=== PATIENT | female | born 1970 | race Caucasian/White ===

== ENCOUNTER 2016-11-23 10:26 | Emergency (ER) | payer SELFPAY ==
[~2016-11-23] VITALS: Ht 157.5 cm; Wt 41.8 kg
[2016-11-23 10:34] VITALS: BP 106/68; PULSE 98; TEMP 98.8
== END 2016-11-23 11:58 | disposition home or self-care (01) ==
LOC: COL.ER 10:26
DX: J06.9 Acute upper respiratory infection, unspecified (principal); F17.210 Nicotine dependence, cigarettes, uncomplicated

== ENCOUNTER 2017-02-25 10:43 | Emergency (ER) | payer SELFPAY ==
[~2017-02-25] VITALS: Ht 160 cm; Wt 40.5 kg
[2017-02-25 10:47] VITALS: BP 119/75; TEMP 97.6
[2017-02-25 12:14] VITALS: PULSE 88
== END 2017-02-25 12:15 | disposition home or self-care (01) ==
LOC: COL.ER 10:43
DX: J06.9 Acute upper respiratory infection, unspecified (principal); J32.9 Chronic sinusitis, unspecified; F17.210 Nicotine dependence, cigarettes, uncomplicated

== ENCOUNTER 2017-03-13 04:09 | Emergency (ER) | payer SELFPAY ==
[~2017-03-13] VITALS: Ht 170.2 cm; Wt 38.2 kg
[2017-03-13 04:23] VITALS: TEMP 97.9
[2017-03-13 05:10] VITALS: BP 122/74; PULSE 92
== END 2017-03-13 05:10 | disposition home or self-care (01) ==
LOC: COL.ER 04:09
DX: S90.01XA Contusion of right ankle, initial encounter (principal); F17.210 Nicotine dependence, cigarettes, uncomplicated; W22.8XXA Striking against or struck by other objects, initial encounter; Y93.72 Activity, wrestling; Y92.009 Unspecified place in unspecified non-institutional (private) residence as the place of occurrence of the external cause

== ENCOUNTER → 2018-08-18 | Outpatient (CLI) | payer OTHER ==
[~2018-08-18] MED LIST: NO HOME MEDICATIONS
== END ==
LOC: COL.RAD 13:56
DX: M19.072 Primary osteoarthritis, left ankle and foot (principal); M79.671 Pain in right foot; Z87.312 Personal history of (healed) stress fracture

== ENCOUNTER → 2021-05-08 | Outpatient (CLI) | payer SELFPAY | LOC: COL.RAD 14:23 | DX: R05.9 Cough, unspecified (principal); F17.200 Nicotine dependence, unspecified, uncomplicated ==

== ENCOUNTER 2023-07-30 17:58 | Observation (INO) | payer SELFPAY ==
[~2023-07-30] VITALS: Ht 160 cm; Wt 34.3 kg
[2023-07-30] MEDS ORDERED: NS 1,000 ML IV ONE ×2 (19:00→22:15)
[2023-07-30] MEDS ORDERED: Albuterol/Ipratropium 3 MG-0.5 MG/3 ML Neb Soln IH ONE ×2 (19:30→22:30)
[2023-07-30 19:34] LABS: BASO # 0.1 K/mm3 (0.0-0.2); BASO % 0.5 % (0.0-2.0); EOS # 0.1 K/mm3 (0.0-0.7); EOS % 0.9 % (0.0-4.0); GRAN # 6.2 K/mm3 (1.4-6.5); GRAN % 67.7 % (42.2-75.2); HEMATOCRIT 41.8 % (37.0-47.0); HEMOGLOBIN 14.7 g/dl (12.5-16.0); LYMPH # 2.1 K/mm3 (1.2-3.4); LYMPH % 23.4 % (20.0-51.0); MEAN CELL VOLUME 87 fl (80.0-100.0); MEAN CORPUSCULAR HEMOGLOBIN 31 pg (27-31); MEAN CORPUSCULAR HGB CONC 35 g/dl (33.0-37.0); MONO # 0.7 K/mm3 (0.1-0.6); MONO % 7.1 % (1.7-9.3); PLATELET COUNT 258 K/mm3 (130-400); RED BLOOD COUNT 4.81 M/mm3 (4.10-5.30); REDCELL DISTRIBUTION WIDTH-CV 13.2 % (11.5-14.5)
[2023-07-30 19:55] LABS: ALBUMIN 4.2 gm/dL (3.5-5.0); BILIRUBIN,TOTAL 0.4 mg/dL (0.2-1.2); CALCIUM 9.6 mg/dL (8.4-10.2); CREATININE, serum 0.74 mg/dL (0.57-1.11); POTASSIUM 3.6 mmol/L (3.5-4.5); TOTAL PROTEIN 7.6 gm/dL (6.2-8.1)
[2023-07-30] MEDS ORDERED: PREDNISONE20 MG PO (20:12)
[2023-07-30] MEDS ORDERED: ZITHROMAX Z PA250 MG PO (20:13)
[2023-07-30] MEDS ORDERED: predniSONE 20 MG TAB PO ONE (20:15)
[2023-07-30 23:56] LABS: COLLECTION METHOD CLEAN CATCH
[2023-07-31 00:17] LABS: SQUAMOUS EPITHELIAL 0-2 /hpf (0-10); URINE APPEARANCE Clear (CLEAR/HAZY); URINE BLOOD Negative (NEGATIVE); URINE COLOR Yellow (YELLOW); URINE GLUCOSE Negative (NEGATIVE); URINE KETONE Negative (NEGATIVE); URINE NITRATE Negative (NEGATIVE); URINE PROTEIN(semi-quant) Negative (NEGATIVE); URINE RBC None Seen /hpf (0-2); URINE UROBILINOGEN 0.2 E.U/dL (0.2-1.0)
[2023-07-31 00:18] LABS: URINE BACTERIA None Seen /hpf (NONE SEEN)
[2023-07-31] MEDS ORDERED: NS 74 ML IV SCH (00:43)
[2023-07-31] MEDS ORDERED: Iohexol 300 - 100 ML VIAL IV ONE (00:43)
[2023-07-31] MEDS ORDERED: dexAMETHasone 10 MG/ML VIAL IV SCH (01:45)
[2023-07-31] MEDS ORDERED: Albuterol/Ipratropium 3 MG-0.5 MG/3 ML Neb Soln IH PRN (01:45)
[2023-07-31] MEDS ORDERED: Albuterol/Ipratropium 3 MG-0.5 MG/3 ML Neb Soln IH SCH (02:00)
[2023-07-31] MEDS ORDERED: *Potassium Replacement Protocol MC SCH (02:15)
[2023-07-31] MEDS ORDERED: Potassium Bicarbonate/Citrate 20 MEQ Effervescent TAB PO SCH (02:15)
[2023-07-31] MEDS ORDERED: cefTRIAXone 1 G in Water For Injection,Sterile 10 ML IV SCH (03:00)
[2023-07-31 03:04] LABS: MAGNESIUM 1.9 mg/dL (1.6-2.6)
[2023-07-31 03:06] LABS: TRICYCLIC ANTIDEPRESS URINE NEGATIVE (NEGATIVE)
[2023-07-31 03:09] VITALS: BP 123/70; PULSE 110; TEMP 97.6
[2023-07-31 03:17] LABS: TROPONIN-I 0.038 ng/mL (0.00-0.033)
--- NOTE | 2023-07-31 03:29 | NUR ---
0250-PT ADMITTED FROM ED FOR COPD. PT AMBULATED TO BED FROM [facility] . PT IS AXOX3. PT IS ON 2L NC SATING UPPER 90'S. PT'S OTHER VSS. PT ORIENTED TO ROOM AND FLOOR. PT GIVEN CALL LIGHT AND INSTRUCTED TO CALL WITH ALL NEEDS. 5835-KIMBERLI DE LA FUENTE NOTIFIED OF TROPONIN RESULTS. PT'S ALSO ADMITTED TESTED POSITIVE FOR RSV, KIMBERLI NOTIFIED.
[2023-07-31] MEDS ORDERED: Budesonide Neb Susp 0.5 MG/2 ML AMP IH SCH (07:00)
[2023-07-31] MEDS ORDERED: Formoterol Neb Soln 20 MCG/2 ML UD IH SCH (07:00)
[2023-07-31 07:39] VITALS: BP 142/89; PULSE 122; TEMP 98.1
[2023-07-31] MEDS ORDERED: guaiFENesin ER 1,200 MG **** subs to guaiFENesin 400 MG PO SCH (09:00)
[2023-07-31] MEDS ORDERED: Nicotine 21 MG DAILY PATCH TD SCH (09:00)
[2023-07-31] MEDS ORDERED: Acetaminophen 500 MG TAB PO PRN (09:45)
--- NOTE | 2023-07-31 09:50 | NUR ---
PT LAYING IN BED UPON ENTERING. ASSESSMENT DONE, MEDS GIVEN PER ORDER. PT COMPLAINING OF A HEADACHE AND GIVEN PRN TYLENOL. PT ON 1L NASAL CANNULA AND EXPIRATORY WHEEZES HEARD DURING ASSESSMENT. PT REPORTS SHORTNESS OF BREATH BUT STATES THAT IT IS AN IMPROVEMENT. PRODUCTIVE COUGH NOTED. PT PLACED ON DROPLET PRECAUTIONS DUE TO REPEATED EXPOSURE. PT DENIES NEEDS AT THIS TIME AND ASKING THIS NURSE WHEN SHE WILL LEAVE. PT NOTIFIED THAT HOSPITALIST WITH DO ROUNDS AND MAKE THAT DECISION. BED IN LOWEST POSITION, CALL LIGHT IN REACH
[2023-07-31] MEDS ORDERED: Clopidogrel 75 MG TAB PO SCH (10:11)
[2023-07-31 10:42] LABS: MEAN CELL VOLUME 90 fl (80.0-100.0); MEAN CORPUSCULAR HGB CONC 34 g/dl (33.0-37.0); PLATELET COUNT 245 K/mm3 (130-400); RED BLOOD COUNT 3.94 M/mm3 (4.10-5.30); REDCELL DISTRIBUTION WIDTH-CV 13.7 % (11.5-14.5)
[2023-07-31 10:55] LABS: CALCIUM 8.5 mg/dL (8.4-10.2); CREATININE, serum 0.68 mg/dL (0.57-1.11); POTASSIUM 3.9 mmol/L (3.5-4.5)
[2023-07-31 10:55] LABS: HEMATOCRIT 35.4 % (37.0-47.0); MEAN CORPUSCULAR HEMOGLOBIN 30 pg (27-31)
[2023-07-31] MEDS ORDERED: Potassium Bicarbonate/Citrate 20 MEQ Effervescent TAB PO ONE (11:00)
[2023-07-31 11:08] VITALS: BP 138/89; PULSE 117; TEMP 97.5
[2023-07-31] MEDS ORDERED: [UNRECOGNIZED DRUG - OTHER] (11:28)
[2023-07-31] MEDS ORDERED: ASPIRIN 32325 MG/TAB PO (11:30)
--- NOTE | 2023-07-31 11:32 | NUR ---
DR WATTS NOTIFIED THIS NURSE THAT PT NEEDS AN EXERCISE OX AND LACTIC LAB BEFORE DISCHARGE. JULIANNE FROM RESPIRATORY NOTIFIED AND HOSPITALIST GAVE THIS NURSE A VERBAL ORDER FOR LACTIC LAB
[2023-07-31 11:39] LABS: BAND 2 % (0-10); LYMPHOCYTE 4 % (20.0-51.0); NEUTROPHILS 94 % (42.0-75.2); PLATELET ESTIMATE NORMAL (NORMAL)
[2023-07-31] MEDS ORDERED: PREDNISONE10 MG PO (13:20)
[2023-07-31] MEDS ORDERED: DOXYCYCLINE HY100 MG PO (13:21)
--- NOTE | 2023-07-31 13:25 | NUR ---
asphalt worker completed intake via phone due to pt being in isolation. SW called room phone. Pt reports she lives in [place] with her , Josué [phone] (home #.) Her is also admitted in the hospital. Pt reports she goes to the [facility] for PCP needs. She obtains medications from [email or web address] with no difficulties, since she got paid. She is independent with ADLS and uses no DME. She does not have a DPOA-HC, but says "I will talk with my son, Bright about that." Pt confirms she does not have insurance. SW advised she spoke with Motor Vehicles Supervisor [place] who will come speak to her. SW informed her that if she qualifies for oxygen the advisor can work with her and complete a form to assist. Pt intends to return home at discharge today. Excerise Oximetry was ordered and patient does not qualify. Discharge Plan: Home
[2023-07-31 14:00] VITALS: BP_SYST 138
--- NOTE | 2023-07-31 14:03 | NUR ---
IV AND TELE REMOVED. PT ALREADY DRESSED IN PERSONAL CLOTHES AND WAITING ON DISCHARGE PAPERWORK. PT STATES THAT SHE WOULD LIKE TO TALK TO SOMEONE AGAIN ABOUT "FINANCIAL PAPERS FOR MY MEDS, IM NOT SURE WHY I TURNED HER AWAY EARLIER". SOCIAL WORK NOTIFIED AND TOLD THIS NURSE THAT THE APPROPRIATE PERSON WAS CONTACTED AND THAT SHE NOTIFIED PT OF THAT
--- NOTE | 2023-07-31 15:00 | NUR ---
ULTRASOUND IN ROOM FOR ECHO. UPDATED THAT PT HAS DISCHARGE ORDERS IN PLACE
--- NOTE | 2023-07-31 15:45 | NUR ---
PT GIVEN DISCHARGE INSTRUCTIONS AND VERBALIZED UNDERSTANDING. PT DENIES NEEDS AT THIS TIME AND IS WAITING ON RIDE
--- NOTE | 2023-07-31 16:20 | NUR ---
PT AMBULATED TO PERSONAL VEHICLE WITH PERSONAL BELONGINGS. PT ESCORTED BY [facility]J JOHN
--- NOTE | 2023-07-31 16:36 | NUR ---
Staff reviewed COPD diagnosis and signs and symptoms of exacerbation. Reviewed the [employer] [place] [employer] action plan/Zone sheet for COPD and discussed specific actions the patient can take to reduce risk of COPD exacerbation. Patient was given our "Living with Pulmonary Disease" packet and encouraged to review. Pt will discuss with his but states transportation is an issue until they can get their truck fixed.
== END 2023-07-31 16:20 | disposition home or self-care (01) ==
LOC: COL.ER 17:58 → MEDICAL 07-31 01:42 → COL.ER 07-31 01:42 → MEDICAL 07-31 09:30
PROVIDERS: Nurse Practitioner; Nurse Practitioner Family; Physician Assistant; ADMIT Internal Medicine
DX: J96.01 Acute respiratory failure with hypoxia (principal); J44.1 Chronic obstructive pulmonary disease with (acute) exacerbation; R65.10 Systemic inflammatory response syndrome (SIRS) of non-infectious origin without acute organ dysfunction; E87.20 Acidosis, unspecified; E87.6 Hypokalemia; F17.210 Nicotine dependence, cigarettes, uncomplicated; E44.0 Moderate protein-calorie malnutrition; R79.89 Other specified abnormal findings of blood chemistry; R74.01 Elevation of levels of liver transaminase levels; I07.1 Rheumatic tricuspid insufficiency; Z79.899 Other long term (current) drug therapy
CPT/HCPCS: G0378; J0696; J1100; J1650; J7030; J7512; Q9967